=== PATIENT | female | born 1975 ===

== ENCOUNTER 2019-01-15 08:45 | Emergency (ER) | payer MEDICAID ==
[2019-01-15 08:52] VITALS: O2SAT 100
--- NOTE | 2019-01-15 09:08 | C.PDOC ---
History Of Present Illness 43 y/o female,w/PMhx of asthma, presents to the ER for evaluation of chronic shortness of breath and abdominal pain. Patient states that she was recently evaluated in [facility] [place] [facility]. Patient reports that she has multiple tests done and she was discharged. She notes that she was evaluated by her PMD, yesterday and he referred her to GI. She notes that she has an appointment with RACHEL Johnson in 2 weeks so she decided to come to the ER. Denies having fever,chills, CP, nausea, vomiting, dysuria, and hematuria. Time Seen by Provider: 01/15/19 08:58 Chief Complaint (Nursing): Shortness Of Breath History Per: Patient History/Exam Limitations: no limitations Onset/Duration Of Symptoms: Days Current Symptoms Are (Timing): Still Present Severity: Moderate Past Medical History Reviewed: Historical Data, Nursing Documentation, Vital Signs Vital Signs: Last Vital Signs Temp 98.3 F 01/15/19 08:52 Pulse 83 01/15/19 08:52 Resp 22 01/15/19 08:52 BP 123/78 01/15/19 08:52 Pulse Ox 100 01/15/19 08:52 - Medical History PMH: No Chronic Diseases Surgical History: No Surg Hx Family History: States: No Known Family Hx Review Of Systems Except As Marked, All Systems Reviewed And Found Negative. Constitutional: Negative for: Fever, Chills Respiratory: Positive for: Shortness of Breath Gastrointestinal: Positive for: Abdominal Pain. Negative for: Nausea, Vomiting, Diarrhea Physical Exam - Physical Exam Appears: Non-toxic, No Acute Distress Skin: Normal Color, Warm, Dry Head: Atraumatic, Normacephalic Eye(s): bilateral: Normal Inspection Nose: Normal Oral Mucosa: Moist Neck: Supple Chest: Symmetrical Cardiovascular: Rhythm Regular Respiratory: Decreased Breath Sounds (diminished breath sounds), No Rales, No Rhonchi, No Wheezing Gastrointestinal/Abdominal: Normal Exam, Soft, No Tenderness, No Guarding, No Rebound Neurological/Psych: Oriented x3, Normal Speech ED Course And Treatment - Laboratory Results Result Diagrams: 01/15/19 10:41 01/15/19 10:41 Lab Interpretation: Normal Urine POC: Negative O2 Sat by Pulse Oximetry: 100 (RA) Pulse Ox Interpretation: Normal - CT Scan/US US-Abd. Other Rad Studies (CT/US): Read By Radiologist, Radiology Report Reviewed CT/US Interpretation: HISTORY: Pain. COMPARISON: None available. TECHNIQUE: Sonographic evaluation of the abdomen. FINDINGS: LIVER: Measures 15.5 cm in sagittal dimension. Echogenic liver may be seen in setting of hepatic parenchymal disease or fatty infiltration. No focal hepatic mass identified. The main portal vein appears patent with normal directional flow. No intrahepatic bile duct dilatation. GALLBLADDER: No gallstones. No gallbladder wall thickening. Negative sonographic Bajwa's sign as assessed by the party plan sales director. COMMON BILE DUCT: Measures 3 mm. PANCREAS: Not well visualized. RIGHT KIDNEY: Measures 11.4 x 4.1 x 4.7cm. No obstructing calculus or hydronephrosis identified. LEFT KIDNEY: Measures 11.8 x 5.8 x 4.9cm. No obstructing calculus or hydronephrosis identified. SPLEEN: Measures approximately 8.0 cm. AORTA: Limited views appear unremarkable. IVC: Limited views appear unremarkable. OTHER FINDINGS: None. IMPRESSION: Echogenic liver may be seen in setting of hepatic parenchymal disease or fatty infiltration. Progress Note: Treated with duoneb x 1, IVF NSS and maalox. On re-evaluation lungs clear in no distress, discharged in stable condition Reassessment Condition: Improved Medical Decision Making Medical Decision Making: Plan: --CXR --UA --Duoneb Disposition Counseled Patient/Family Regarding: Studies Performed, Diagnosis, Need For Followup, Rx Given - Disposition Referrals: Gia Latif [Staff Provider] - Disposition: HOME/ ROUTINE Disposition Time: 13:00 Condition: STABLE Additional Instructions: Follow up with GI for further evaluation Prescriptions: Famotidine [Pepcid AC] 10 mg PO BID #30 tab Instructions: Acute Abdomen (Belly Pain), Child (DC) Forms: [facility] (Telugu) - POA Present On Arrival: None - Clinical Impression Clinical Impression: Dyspnea, Abdominal pain - PA / PRODUCT SUPPORT TECHNICIAN / Resident Statement MD/DO has reviewed & agrees with the documentation as recorded. - Scribe Statement The provider has reviewed the documentation as recorded by the Cortezibe Dayo Carpenter Provider Attestation All medical record entries made by the Scribe were at my direction and personally dictated by me. I have reviewed the chart and agree that the record accurately reflects my personal performance of the history, physical exam, medical decision making, and the department course for this patient. I have also personally directed, reviewed, and agree with the discharge instructions and disposition.
[2019-01-15] MEDS ORDERED: Albuterol-Ipratrop 3 mg / 0.5 (3 ml) UD ONE (09:19)
[2019-01-15] MEDS: Albuterol-Ipratrop 3 mg / 0.5 (3 ml) UD IH SCH ×2 (09:20→09:30)
[2019-01-15] MEDS ORDERED: Aluminum Hydroxide/Magnesium Hydroxide Susp (30 mL) PO STA (09:49)
[2019-01-15] MEDS ORDERED: Aluminum Hydroxide/Magnesium Hydroxide Susp (30 mL) ONE (09:56)
[2019-01-15] MEDS ORDERED: Sodium Chloride 0.9% 1,000 ML IV ONE (10:18)
--- NOTE | 2019-01-15 10:38 | RAD ---
HISTORY: SOB COMPARISON: None available. TECHNIQUE: Chest PA and lateral FINDINGS: LUNGS: No focal consolidation. Please note that chest x-ray has limited sensitivity for the detection of pulmonary masses. PLEURA: No significant pleural effusion identified. No definite pneumothorax . CARDIOVASCULAR: Heart size appears within normal limits. Faint atherosclerotic calcification of the aorta. OSSEOUS STRUCTURES: No acute osseous abnormality identified. VISUALIZED UPPER ABDOMEN: Unremarkable. OTHER FINDINGS: None. IMPRESSION: No focal consolidation.
[2019-01-15] MEDS ORDERED: Sodium Chloride 0.9% 1,000 ML ONE (10:43)
[2019-01-15 10:52] LABS: BASO # 0.1 K/uL (0.0-0.2); BASO % 0.6 % (0.0-2.0); EOS # 0.2 K/uL (0.0-0.7); EOS % 2.6 % (0.0-4.0); LYMPH # 1.6 K/uL (1.0-4.3); LYMPH % 18.7 % (20.0-40.0); MEAN CELL VOLUME 91.6 fL (81.0-99.0); MEAN CORPUSCULAR HEMOGLOBIN 31.7 pg (27.0-31.0); MEAN CORPUSCULAR HGB CONC 34.6 g/dL (33.0-37.0); MEAN PLATELET VOLUME 8.6 fL (7.2-11.7); MONO # 0.4 K/uL (0.0-0.8); MONO % 4.1 % (0.0-10.0); NEUT # 6.5 K/uL (1.8-7.0); NRBC % 0.1 % (0.0-2.0); RBC 4.4 Mil/uL (3.80-5.20); RED CELL DISTRIBUTION WIDTH 13.1 % (11.5-14.5); WHITE BLOOD COUNT 8.7 K/uL (4.8-10.8)
[2019-01-15 11:04] LABS: ALB/GLOB RATIO 1.5 (1.0-2.1); ALBUMIN 4.5 g/dL (3.5-5.0); ALT/SGPT 10 U/L (9-52); AST/SGOT 19 U/L (14-36); BLOOD UREA NITROGEN 12 mg/dL (7-17); CALCIUM 9.2 mg/dl (8.6-10.4); GFR NON-AFRICAN AMERICAN > 60; LIPASE 137 U/L (23-300)
--- NOTE | 2019-01-15 12:06 | US ---
HISTORY: Pain COMPARISON: None available. TECHNIQUE: Sonographic evaluation of the abdomen. FINDINGS: LIVER: Measures 15.5 cm in sagittal dimension. Echogenic liver may be seen in setting of hepatic parenchymal disease or fatty infiltration. No focal hepatic mass identified. The main portal vein appears patent with normal directional flow. No intrahepatic bile duct dilatation. GALLBLADDER: No gallstones. No gallbladder wall thickening. Negative sonographic Bajwa's sign as assessed by the industrial diamond polisher. COMMON BILE DUCT: Measures 3 mm. PANCREAS: Not well visualized. RIGHT KIDNEY: Measures 11.4 x 4.1 x 4.7cm. No obstructing calculus or hydronephrosis identified. LEFT KIDNEY: Measures 11.8 x 5.8 x 4.9cm. No obstructing calculus or hydronephrosis identified. SPLEEN: Measures approximately 8.0 cm. AORTA: Limited views appear unremarkable. IVC: Limited views appear unremarkable. OTHER FINDINGS: None. IMPRESSION: Echogenic liver may be seen in setting of hepatic parenchymal disease or fatty infiltration.
[2019-01-15 13:10] VITALS: BP 111/72; PULSE 80; RESP 18; TEMP 98.9
== END 2019-01-15 13:10 | disposition home or self-care (01) ==
LOC: C.ER 08:45
DX: R06.00 Dyspnea, unspecified (principal); R10.9 Unspecified abdominal pain
CPT/HCPCS: 71046; 76700; 80053; 83690; 84703; 85025; 94640; 96361; 96374; 99285; J7030

== ENCOUNTER 2019-01-23 22:23 | Emergency (ER) | payer MEDICAID ==
[2019-01-23 23:36] LABS: BASO % 0.3 % (0.0-2.0); EOS # 0.3 K/uL (0.0-0.7); EOS % 2.3 % (0.0-4.0); HEMOGLOBIN 14.3 g/dL (11.0-16.0); LYMPH # 1.9 K/uL (1.0-4.3); LYMPH % 14.7 % (20.0-40.0); MEAN CELL VOLUME 91.4 fL (81.0-99.0); MEAN CORPUSCULAR HEMOGLOBIN 31.5 pg (27.0-31.0); MEAN CORPUSCULAR HGB CONC 34.4 g/dL (33.0-37.0); MEAN PLATELET VOLUME 8.9 fL (7.2-11.7); MONO # 0.6 K/uL (0.0-0.8); MONO % 4.9 % (0.0-10.0); NEUT # 9.9 K/uL (1.8-7.0); NEUT % 77.8 % (50.0-75.0); NRBC % 0.1 % (0.0-2.0); RBC 4.54 Mil/uL (3.80-5.20); RED CELL DISTRIBUTION WIDTH 12.6 % (11.5-14.5); WHITE BLOOD COUNT 12.7 K/uL (4.8-10.8)
[2019-01-23 23:52] LABS: ALB/GLOB RATIO 1.4 (1.0-2.1); ALBUMIN 4.7 g/dL (3.5-5.0); ALT/SGPT 10 U/L (9-52); AST/SGOT 26 U/L (14-36); BLOOD UREA NITROGEN 9 mg/dL (7-17); CALCIUM 9.7 mg/dl (8.6-10.4); GFR NON-AFRICAN AMERICAN > 60; LIPASE 141 U/L (23-300)
[2019-01-23 23:58] LABS: CK-MB 0.35 ng/mL (0.0-3.38)
[2019-01-24] MEDS ORDERED: Iodixanol 320 MG/ML 100 ML BOTTLE IV ONE (00:11)
--- NOTE | 2019-01-24 00:48 | C.PDOC ---
History Of Present Illness 43 y/o F p/w shortness of breath x 1 month. Patient states has been to this ED and [facility] [place] before for same symptoms. Reports shortness of breath, initially intermittent, now constant associated with epigastric "squeezing" pain. Denies f ever, chills, chest pain, vomiting, cough, leg swelling, recent travel. Discharged previously on pepcid and has GI appointment in 5 days. Time Seen by Provider: 01/23/19 23:08 Chief Complaint (Nursing): Abdominal Pain Past Medical History Vital Signs: Last Vital Signs Temp 97.9 F 01/24/19 00:09 Pulse 73 01/24/19 00:09 Resp 16 01/24/19 00:09 BP 111/60 01/24/19 00:09 Pulse Ox 100 01/24/19 00:09 - Medical History PMH: Asthma Family History: States: No Known Family Hx - Social History Hx Alcohol Use: No Hx Substance Use: No - Immunization History Hx Tetanus Toxoid Vaccination: No Hx Influenza Vaccination: No Hx Pneumococcal Vaccination: No Review Of Systems Except As Marked, All Systems Reviewed And Found Negative. Constitutional: Negative for: Fever Cardiovascular: Negative for: Chest Pain Physical Exam - Physical Exam Additional Physical Exam Comments: Gen: Sitting up on edge of stretcher Head: NC Eyes: PERRL ENT: MMM Neck: SUpple Chest: No tenderness CV: REgular rate Lungs: CTA b/l Abd: Soft, NT, ND Back: No CVA tenderness Skin: No rash Extremities: No edema Neuro: ALert ED Course And Treatment - Laboratory Results Result Diagrams: 01/23/19 23:32 01/23/19 23:32 Lab Results: Troponin I < 0.0120 ng/mL (0.00-0.120) 01/23/19 23:32 NT-Pro-B Natriuret Pep 23.0 pg/mL (0-450) 01/23/19 23:32 Total Bilirubin 0.5 mg/dL (0.2-1.3) 01/23/19 23:32 AST 26 U/L (14-36) 01/23/19 23:32 ALT 10 U/L (9-52) 01/23/19 23:32 Alkaline Phosphatase 66 U/L (38-126) 01/23/19 23:32 Total Protein 8.1 g/dL (6.3-8.3) 01/23/19 23:32 Albumin 4.7 g/dL (3.5-5.0) 01/23/19 23:32 Globulin 3.4 gm/dL (2.2-3.9) 01/23/19 23:32 Albumin/Globulin Ratio 1.4 (1.0-2.1) 01/23/19 23:32 Lipase 141 U/L (23-300) 01/23/19 23:32 O2 Sat by Pulse Oximetry: 100 Medical Decision Making Medical Decision Making: EKG NSR, regular rate, no ST/T wave changes. CT impression: Normal CTA chest examination, without a demonstrated pulmonary embolism or arterial dissection. Disposition - Disposition Disposition: HOME/ ROUTINE Disposition Time: 02:10 Condition: GOOD Additional Instructions: Keep your appointment with GI. Prescriptions: Famotidine/Ca Carb/Mag Hydrox [Pepcid Complete Tablet Chew] 1 each PO BID #28 tab.chew Instructions: Shortness of Breath (Dyspnea) (DC) Forms: [employer] (Urdu) - Clinical Impression Clinical Impression: Dyspnea
[2019-01-24 02:50] VITALS: O2SAT 100
[2019-01-24 03:18] VITALS: BP 112/70; PULSE 68; RESP 20; TEMP 98.1
--- NOTE | 2019-01-24 09:00 | CT ---
Date of service: 01/24/2019 PROCEDURE: CT Chest with contrast (Pulmonary Angiogram) HISTORY: dyspnea COMPARISON: Plain radiographs from 01/15/2019. TECHNIQUE: Axial computed tomography images were obtained of the chest in the pulmonary arterial phase of enhancement. Coronal and sagittal reformatted images were created and reviewed. Intravenous contrast dose: Radiation dose: Total exam DLP = 327.37 mGy-cm. This CT exam was performed using one or more of the following dose reduction techniques: Automated exposure control, adjustment of the mA and/or kV according to patient size, and/or use of iterative reconstruction technique. FINDINGS: PULMONARY ARTERIES: There are no filling defects in the pulmonary arteries to suggest acute pulmonary embolism. AORTA: No acute findings. No thoracic aortic aneurysm. No aortic atherosclerotic calcification or mural plaque present. LUNGS: The lungs are well inflated and clear. No nodule, mass or pulmonary consolidation. PLEURAL SPACES: No effusion or pneumothorax. HEART: No cardiomegaly. No significant pericardial effusion. LYMPH NODES: No pathologic mediastinal or hilar lymphadenopathy. BONES, CHEST WALL: Within normal limits for the patient's age. No fracture or destructive lesion OTHER FINDINGS: None. IMPRESSION: No CTA evidence for acute pulmonary embolism. Clear lungs. A preliminary report was provided by [employer].
--- NOTE | 2019-01-27 12:59 | CARD ---
APPROVED REPORT Date of service: 01/23/2019 EKG Measurement Heart [id number] [id number] <Conclusion> Normal sinus rhythm Normal ECG
== END 2019-01-24 03:15 | disposition home or self-care (01) ==
LOC: C.ER 22:23
DX: R06.00 Dyspnea, unspecified (principal)
CPT/HCPCS: 71275; 80053; 82550; 82553; 83690; 83880; 84484; 85025; 99285; Q9967

== ENCOUNTER 2019-01-29 09:02 | Day surgery (SDC) | payer MEDICAID ==
[2019-01-29 09:24] VITALS: BMI 21.6
[2019-01-29] MEDS ORDERED: Propofol 10 mg/ml Inj (20 ML) ONE (11:31)
[2019-01-29] MEDS ORDERED: Lactated Ringer's 500 ML IV ONE ×2 (12:06)
[2019-01-29] MEDS ORDERED: Lactated Ringer's 500 ML IV SCH (12:30)
[2019-01-29 13:13] VITALS: BP 123/67; PULSE 68; RESP 18; TEMP 98; O2SAT 98
== END 2019-01-29 13:15 | disposition home or self-care (01) ==
LOC: C.ENDO 09:02
PROVIDERS: ATTEND Internal Medicine Gastroenterology
DX: K21.9 Gastro-esophageal reflux disease without esophagitis (principal); K20.9 Esophagitis, unspecified
CPT/HCPCS: 43239; 84703; 88305; 88312; 88313; 88342; J2001; J2704; J3010; J7120